=== PATIENT | female | born 1980 | race Caucasian/White ===

== ENCOUNTER → 2021-05-12 | Emergency (ER) | payer OTHER ==
[~2021-05-12] VITALS: Ht 167.6 cm; Wt 80.7 kg
== END | disposition left against medical advice (07) ==
LOC: ER 19:02
DX: Z53.21 Procedure and treatment not carried out due to patient leaving prior to being seen by health care provider (principal)

== ENCOUNTER 2025-01-16 08:06 | Emergency (ER) | payer BC ==
[~2025-01-16] VITALS: Ht 170.2 cm; Wt 72.6 kg
[2025-01-16] MEDS ORDERED: KETOROLAC TROMETHAMINE 30 MG VIAL IM STA (08:48)
[2025-01-16] MEDS ORDERED: DEXAMETHASONE SODIUM PHOSPHATE 4 MG/ML VIAL IM STA (08:49)
[2025-01-16] MEDS ORDERED: ORPHENADRINE CITRATE 30 MG/ML AMPUL IM STA (08:49)
== END 2025-01-16 11:59 | disposition home or self-care (01) ==
LOC: ER 08:06
DX: M43.6 Torticollis (principal)